=== PATIENT | male | born 1995 | race Caucasian/White ===

== ENCOUNTER 2024-11-18 10:23 | Emergency (ER) | payer SELFPAY ==
[2024-11-18 10:33] VITALS: BP 117/67; PULSE 87; RESP 16; TEMP 36.6; O2SAT 98
[2024-11-18 10:35] VITALS: BP 117/67; PULSE 87; RESP 16; TEMP 36.6; O2SAT 98
[2024-11-18] MEDS: Normal Saline 1,000 ML 1000 ML IV (11:19)
[2024-11-18] MEDS: Prochlorperazine 10 MG/2 ML VIAL 5 MG IVP (11:20)
[2024-11-18] MEDS: Famotidine 20 MG/2 ML VIAL IVP (11:22)
[2024-11-18] MEDS: Pantoprazole 40 MG VIAL IVP (11:24)
[2024-11-18 11:27] LABS: Abs Immature Grans 0.12 10^3/uL (0.0-0.06); HCT 51.0 % (40.0-50.0); HGB 17.2 g/dL (13.5-17.5); Immature Grans % 0.6 %; MCH 30.8 pg (27.0-33.0); MCHC 33.7 % (32.0-36.0); MCV 91 fL (80-95); MPV 8.8 fL (8.0-11.0); Platelet Count 301 10^3/uL (130-400); RBC 5.59 10^6/uL (4.36-5.78); RDW 12.1 % (11.8-14.1); RDW-SD 40.9 fL; WBC 21.71 10^3/uL (4.4-10.8)
[2024-11-18] MEDS: ACETAMINOPHEN 500 MG/50 ML BAG 200 MG IVPB (11:29)
[2024-11-18 11:40] LABS: ALT 44 U/L (16-63); AST 59 U/L (15-37); Albumin 5.4 g/dL (3.4-5.0); Alkaline Phosphatase 86 U/L (46-116); Anion Gap 26.9 mmol/L (3-11); BUN 12 mg/dL (7-18); Bilirubin, Total 0.6 mg/dL (0.2-1.0); CO2 18.1 mmol/L (21.0-32.0); Calcium 9.4 mg/dL (8.5-10.1); Chloride 100 mmol/L (98-107); Estimated GFR 85.00 (mL/min/1.73m2); Glucose 71 mg/dL (74-106); Lipase 16 U/L (<78); Magnesium 2.1 mg/dL (1.8-2.4); Potassium 3.7 mmol/L (3.5-5.1); Sodium 145 mmol/L (136-145); Total Protein 8.2 g/dL (6.4-8.2)
[2024-11-18] MEDS: Ondansetron 4 MG/2 ML VIAL IVP (12:29)
[2024-11-18 12:38] VITALS: BP 124/55; PULSE 83; RESP 16; TEMP 36.5; O2SAT 100
--- NOTE | 2024-11-18 14:54 | ED.GENADUL_ITS ---
Discharge Plan Disposition Patient Disposition: Home Condition: Stable Discharge Details Clinical Impression: Acute dehydration, Nausea & vomiting, Alcohol abuse Primary Care Provider: Adela,Local ED Provider: Krupa Sawyer Home Meds and New Rx's Prescriptions: New prochlorperazine maleate [Compazine] 10 mg tablet 10 mg PO Q6H PRNQty: 10 0RF Discharge Instructions Instructions: Dehydration, Adult (DC), Binge Drinking Additional Instructions: You are very dehydrated, it is important that you continue to drink fluids, please stay away from alcohol Popsicles, clear liquids and stay on top of the antinausea medications that you have been prescribed, every 8 hours Please be reevaluated by your PCP this week and return earlier should you have new or worsening complaints HPI General Date/Time Provider Initiated Documentation: 11/18/24 10:44 . HPI Narrative: This 28-year-old male states he drink all day yesterday at a constitution party and now feels nauseous and lightheaded has had numerous episodes of nausea and vomiting. History of von Willebrand's disease but denies any trauma. Denies any additional complaints at this time. Related Data Home Medications ?Medication ?Instructions ?Recorded ?Confirmed prochlorperazine maleate 10 mg 10 mg PO Q6H PRN #10 ta bs 11/18/24 tablet (Compazine) Previous Rx's ?Medication ?Instructions ?Recorded prochlorperazine maleate 10 mg 10 mg PO Q6H PRN #10 ta bs 11/18/24 tablet (Compazine) Allergies Allergy/AdvReac Type Severity Reaction Status Date / Time No Known Allergies Allergy Unverified 11/18/24 10:35 General Stated Complaint: Nausea/Vomit/Diar LATOYA: 3 Exam Narrative Exam Narrative: This 28-year-old male alert, oriented, appears tired and pale, no abdominal tenderness no visible sign of trauma, head to toe exam completed, answering questions appropriately Course Vital Signs Vital signs: Vital Signs Temperature 36.6 C 11/18/24 10:33 Pulse 87 11/18/24 10:33 Respiratory Rate 16 11/18/24 10:33 Blood Pressure 117/67 11/18/24 10:33 Pulse Oximetry 98 11/18/24 10:33 Temperature 36.5 C 11/18/24 12:38 Pulse 83 11/18/24 12:38 Respiratory Rate 16 11/18/24 12:38 Blood Pressure 124/55 L 11/18/24 12:38 Pulse Oximetry 100 11/18/24 12:38 Pain Level 0 11/18/24 12:38 Lab/Test Results Lab/Test Results: Laboratory Tests Range/Units 11/18/24 11/18/24 11:15 11:15 WBC (4.4-10.8) 10^3/uL 21.71 H RBC (4.36-5.78) 10^6/uL 5.59 Hgb (13.5-17.5) g/dL 17.2 Hct (40.0-50.0) % 51.0 H MCV (80-95) fL 91 MCH (27.0-33.0) pg 30.8 MCHC (32.0-36.0) % 33.7 RDW (11.8-14.1) % 12.1 Plt Count (130-400) 10^3/uL 301 MPV (8.0-11.0) fL 8.8 Immature Gran % % 0.6 Neutrophils % % 88.1 Lymphocytes % % 6.4 Monocytes % % 4.4 Eosinophils % % 0.0 Basophils % % 0.5 Nucleated RBC % (0.0-0.3) % 0.0 Absolute Neutrophils (1.2-6.7) 10^3/uL 19.13 H Absolute Lymphocytes (1.2-3.4) 10^3/uL 1.39 Absolute Monocytes (0.1-0.8) 10^3/uL 0.96 H Absolute Eosinophils (0.0-0.7) 10^3/uL 0.00 Absolute Basophils (0.0-0.2) 10^3/uL 0.11 Sodium (136-145) mmol/L 145 Potassium (3.5-5.1) mmol/L 3.7 Chloride (98-107) mmol/L 100 Carbon Dioxide (21.0-32.0) mmol/L 18.1 L Anion Gap (3-11) mmol/L 26.9 H BUN (7-18) mg/dL 12 Creatinine (0.70-1.30) mg/dL 1.2 Est GFR (CKD-EPI 2020) (mL/min/1.73m2) 85.00 Glucose (74-106) mg/dL 71 L Calcium (8.5-10.1) mg/dL 9.4 Magnesium (1.8-2.4) mg/dL 2.1 Total Bilirubin (0.2-1.0) mg/dL 0.6 AST (15-37) U/L 59 H ALT (16-63) U/L 44 Alkaline Phosphatase (46-116) U/L 86 Total Protein (6.4-8.2) g/dL 8.2 Albumin (3.4-5.0) g/dL 5.4 H Lipase (<78) U/L 16 Cancelled Medical Decision Making Results: Gap of 26, dioxide 18 creatinine 1.2 glucose 71 AST 59 Assessment and plan: Went back to evaluate patient for nausea vomiting history of binge drinking alcohol yesterday at a constitution party patient is requesting discharge home, he would like to drink some fluids. He was given deidre lorie and was able to tolerate this. He is aware that he is severely dehydrated and would benefit from another liter of fluids but is requesting discharge in the care of his mother at this time. He was given a dose of Zofran prior to departure and antiemetics for home. We discussed refraining from drinking any alcohol over the next several days. He does not drink alcohol daily per patient. Recheck of liver function test in the outpatient setting encouraged to be reevaluated immediately with recurrence of vomiting secondary to significant dehydration. [facility] All Active Problems (Updated 11/18/24 @ 12:18 by ARABELLA Andrews) Alcohol abuse (Chronic) Nausea & vomiting (Acute) Acute dehydration (Acute) Von Willebrand disease (Acute) Social History Smoking/Tobacco Use Status: Never Smoking risk assessment performed?: Yes Alcohol Intake: current Alcohol Intake frequency: 0-2 drinks per day Substance use type: does not use Housing: house [facility] Have you Been Recently Intoxicated or Drunk Within the Last 30 days?: Yes Have you Ever Experienced Previous Episodes of Alcohol Withdrawal?: No Have you ever Experienced Withdrawal Seizures?: No Have you ever Experienced Delirium Tremens(DT)s?: No Have you ever undergone Alcohol Rehabilitation Treatment (i.e, inpt ot outpatient treatment programs)?: No Have you ever Experienced Blackouts?: No Have you ever Combined Alcohol with other Downers within the last 90 days?: No Have you ever Combined Alcohol with any other Substance of Abuse during the last 90 days?: No Positive Blood Alcohol level on Presentation? [PCS.BAL]: No Evidence of Increased Autonomic Activity (i.e. HR>120, tremor, sweating, agitation, nausea)?: No Result: 1
== END 2024-11-18 12:43 | disposition home or self-care (01) ==
PROVIDERS: Emergency Provider Physician Assistant
DX: R11.2 Nausea with vomiting, unspecified (principal); F10.10 Alcohol abuse, uncomplicated; E86.0 Dehydration; D68.00 Von Willebrand disease, unspecified
CPT/HCPCS: 80053; 83690; 96361; 96365; 96375; 99284; 83735; 85025; 99283; J0131; J0780; J2405; J2470